=== PATIENT | female | born 1970 | race Caucasian/White ===

== ENCOUNTER 2022-08-16 21:49 | Emergency (ER) | payer BC, SELFPAY ==
--- NOTE | ~2022-08-16 | CT_ITS ---
Non-contrast CT scan of the Abdomen and Pelvis Clinical indication: Abdominal pain Technique: 5 mm axial scans were obtained through the abdomen and pelvis without intravenous or oral contrast. Dose reduction technique was used on this scan by utilizing automated exposure control and iterative reconstruction technique. The dose-length product (DLP) was 1376.34 mGy-cm. Findings: Images through the lung bases reveal no abnormalities. There is no evidence of renal or ureteral calculi. The kidneys and the ureters are nondilated. The liver, spleen, pancreas, and adrenals appear normal. Gallstones noted. There is no aortic aneurys m. There is no evidence of bowel obstruction. Normal appendix. Images through the pelvis were performed. There is no evidence of ascites or lymphadenopathy. Urinary bladder unremarkable. No adnexal mass seen. Impression: Cholelithiasis. Reviewed, dictated and finalized at [facility]. E SCIENCES DIRECTOR Impression: Cholelithiasis.
[2022-08-16 21:52] VITALS: BP 149/97; PULSE 92; RESP 22; TEMP 36.8; O2SAT 100
--- NOTE | 2022-08-16 21:56 | ED.ABDPAIN ---
HPI - Abdominal Pain General Chief Complaint: Abdominal Pain Stated Complaint: extreme pain R side/ stomach Time Seen by Provider: 08/16/22 21:55 Source: patient and RN notes reviewed Mode of arrival: ambulatory Limitations: no limitations History of Present Illness HPI narrative: Patient states that she had some abdominal pain this evening started before she went to eat. Then she went to eat at a [place] restaurant and the pain became much worse. She has been nauseous but no vomiting. She denies any fever chills. MD elicited complaint: abdominal pain Pertinent past history: none Onset (ago): hour(s) (4) Pain Consistency: constant Location: RUQ Severity: severe Quality: aching and dull Radiation: none Migration to: no migration Exacerbating factors: eating Relieving factors: nothing Associated symptoms: vomiting Related Data Home Medications Medication Instructions Recorded Confirmed trazodone 100 mg tablet 100 mg PO DIRECTED 08/16/22 08/16/22 venlafaxine 150 mg 150 mg PO DIRECTED 08/16/22 08/16/22 capsule,extended release 24 hr Allergies Allergy/AdvReac Type Severity Reaction Status Date / Time No Known Allergies Allergy Verified 08/16/22 22:00 Review of Systems Review of Systems: All systems reviewed & are unremarkable except as noted in HPI and below Constitutional: Constitutional: Denies chills and Denies fever(s) Genitourinary: Genitourinary: Denies nocturia PMFSH Past Medical History Medical History (Updated 08/17/22 @ 00:03 by Eh Greenberg MD) Depression Morbid obesity Surgical History Surgical History (Updated 08/16/22 @ 22:05 by Eh Greenberg MD) History of bilateral tubal ligation Social History Social History (Updated 08/16/22 @ 22:05 by Eh Greenberg MD) Smoking status: Never smoker Alcohol intake: never Substance use: never Exam Const: General: healthy appearing, no acute distress, alert and ill appearing acutely Nutritional Appearance: well nourished and obese morbidly obese Orientation/consciousness: patient oriented x3 Limitations: no limitations HENMT: Head: normal to inspection Ears: external ears normal Eyes: Conjunctivae: conjunctivae normal Pupils: Equal, round and reactive pupils present EOM: EOMs intact bilaterally Neck: Neck: normal visual inspection Resp: Effort & Inspection: normal respiratory effort Auscultation: clear to auscultation bilaterally Cardio: Rate: regular rate Rhythm: regular rhythm GI: GI Palp: Yes Soft to palpation, Yes Tenderness to palpation present (GI) ( moderate right upper quadrant positive Pringle sign), Yes Guarding due to palpation present (GI) ( moderate right upper quadrant) and No Rebound tenderness present Auscultation: normal bowel sounds Back/Spine/Pelvis: Back: no CVA tenderness Cervical Spine: cervical ROM normal Thoracic/Lumbar Spine: thoraco-lumbar ROM normal Skin: General skin exam: normal color Rashes: no rashes Neuro: General: patient oriented x3, moves all extremities, no focal motor deficits and CN's II-XI intact bilaterally Speech: normal speech Gait exam (Neuro): Normal gait present Extrem: General: normal to inspection and no clubbing, cyanosis or edema Psych: Mental Status: mental status grossly normal Affect: normal affect Attitude: cooperative Course Course Emergency Course: I gave the patient the option of being transferred to another hospital for surgical evaluation and possible cholecystectomy. Her pain is completely resolved which I believe is the gallstone moved away from the common bile duct opening. The morphine that I gave her did not seem to work as fast as I thought it should and then suddenly the pain was gone. Patient decided that she did not want to go to another hospital and that she would take the recommendation of using Bentyl at home a low-fat no grease diet and get an appointment with a general surgeon. Vital Signs Vital signs: Vital Signs Tem
[2022-08-16] MEDS: MORPHINE SULFATE (*CRX) 4 MG/ML INJ 6 MG IM (22:12)
[2022-08-16 22:31] LABS: Basophils Absolute Auto 0.03 K/mm3 (0.00-0.10); Basophils Percent Auto 0.4 % (0.0-1.0); Eosinophils Absolute Auto 0.12 K/mm3 (0.02-0.50); Eosinophils Percent Auto 1.5 % (1.0-6.0); Hematocrit 37.5 % (35.0-49.0); Hemoglobin 12.5 g/dL (12.0-15.0); Immature Granulocyte Absolute 0.01 K/mm3 (0.00-0.00); Immature Granulocyte Percent A 0.1 % (0.0-0.0); Lymphocytes Absolute Auto 2.21 K/mm3 (1.10-4.50); Lymphocytes Percent Auto 28.1 % (18.0-42.0); Mean Corpuscular HGB Conc 33.3 g/dL (32.0-36.0); Mean Corpuscular Hemoglobin 29.5 pg (27.0-31.0); Mean Corpuscular Volume 88.4 fL (78.0-102.0); Mean Platelet Volume 9.6 fl (9.2-11.8); Monocytes Absolute Auto 0.54 K/mm3 (0.10-0.90); Monocytes Percent Auto 6.9 % (2.0-11.0); Platelet Count Result 267 K/mm3 (150-420); Red Blood Count 4.24 M/mm3 (4.20-5.40); Red Cell Distribution Width 11.9 % (11.6-14.4); White Blood Count 7.9 K/mm3 (4.8-10.8)
[2022-08-16 22:45] LABS: Alanine Aminotransferase 23 U/L (14-59); Albumin Level 3.7 g/dL (3.4-5.0); Alkaline Phosphatase 50 U/L (46-116); Amylase 33 U/L (25-115); Anion Gap 6 mmol/L (8-16); Aspartate Amino Transferase 11 U/L (15-37); Bilirubin,Total 0.3 mg/dL (0.00-1.00); Blood Urea Nitrogen 15 mg/dL (7-18); Calcium 9.1 mg/dL (8.5-10.1); Carbon Dioxide 29 mmol/L (21-32); Chloride 103 mmol/L (98-108); D Dimer 0.19 mg/L (0.19-0.50); Estimated CRCL calculation 65 ml/min; Estimated Glomerular Filt Rate 51; Glucose 117 mg/dL (70-99); Lipase 41 U/L (16-77); Magnesium 1.8 mg/dL (1.8-2.4); Osmolality Calculated 287 mOsm/kg (285-295); Potassium 3.9 mmol/L (3.5-5.1); Sodium 138 mmol/L (136-145); Total Protein 7.2 g/dL (6.4-8.2)
[2022-08-16 22:48] LABS: Lactic Acid Reflex 1.1 mmol/L (0.4-2.0)
[2022-08-16 23:02] LABS: Add Urine Microscopic? NO; Appearance Urine Slightly Cloudy (Clear); Bilirubin Urine Negative (Negative); Blood Urine Negative (Negative); Color Urine Yellow (Yellow); Glucose Urine UA Negative (Negative); Ketones Urine Negative (Negative); Leukocyte Esterase Ur Negative LEU/UL (Negative); Nitrate Urine Negative (Negative); Protein Urine Negative (Negative); Specific Grav Ur >= 1.030 (1.010-1.020); Urobilinogen Urine 0.2 mg/dL (0.2-1.0); pH Urine 6.5 (5.0-8.0)
[2022-08-17 00:07] VITALS: BP 141/95; PULSE 95; RESP 18; O2SAT 95
== END 2022-08-17 00:15 | disposition home or self-care (01) ==
PROVIDERS: Emergency Provider Emergency Medicine; PCP Family Medicine
DX: K80.20 Calculus of gallbladder without cholecystitis without obstruction (principal); F32.A Depression, unspecified; E66.01 Morbid (severe) obesity due to excess calories; Z68.41 Body mass index [BMI] 40.0-44.9, adult
CPT/HCPCS: 36415; 74176; 80053; 81003; 82150; 83605; 83690; 83735; 85025; 85380; 96372; 99284; J2270